=== PATIENT | female | born 1985 | race Caucasian/White ===

== ENCOUNTER 2018-06-21 01:56 | Inpatient (IN) | payer MEDICAID ==
[2018-06-21] MEDS ORDERED: Nalbuphine 10 MG/1 ML Vial IVPUSH PRN (03:04)
[2018-06-21] MEDS ORDERED: Misoprostol 200 MCG Tab PO PRN (03:04)
[2018-06-21] MEDS ORDERED: Carboprost Tromethamine 250 MCG/1 ML Amp IM PRN (03:04)
[2018-06-21] MEDS ORDERED: Butorphanol 1 MG/ML SDV IVPUSH PRN (03:04)
[2018-06-21] MEDS ORDERED: Water For Irrigation,Sterile 1,000 ML Container IRR PRN (03:04)
[2018-06-21] MEDS ORDERED: Ampicillin 2 GM in Sodium Chloride 0.9% 100 ML IV ONE (03:04)
[2018-06-21] MEDS ORDERED: Methylergonovine 0.2 MG/1 ML Amp IM PRN (03:04)
[2018-06-21] MEDS ORDERED: Tranexamic Acid 1,000 MG in Sodium Chloride 0.9% 100 ML IV PRN (03:04)
[2018-06-21] MEDS ORDERED: Lidocaine 1% 50 ML MDV INJECT PRN (03:04)
[2018-06-21] MEDS ORDERED: Sodium Chloride 0.9% 2.5 ML Syringe FLUSH PRN (03:04)
[2018-06-21] MEDS ORDERED: Sodium Chloride 0.9% 10 ML Syringe FLUSH PRN (03:04)
[2018-06-21] MEDS ORDERED: Oxytocin/0.9 % Sodium Chloride 30 UNIT/500 ML BAG IV SCH (03:15)
[2018-06-21] MEDS: Lactated Ringers 1,000 ML IV SCH ×3 (03:21→06:17)
[2018-06-21] MEDS ORDERED: fentaNYL 100 MCG/2 ML SDV ONE (04:48)
[2018-06-21] MEDS ORDERED: Ropivacaine HCl/PF 100 ML ONE (04:48)
[2018-06-21] MEDS ORDERED: Lidocaine HCl/EPINEPHrine 5 ML IJ ONE (04:49)
--- NOTE | 2018-06-21 05:35 | PCM.PREANE ---
Preanesthetic Assessment - Anesthesia/Transfusion/Family Hx Anesthesia History: Prior Anesthesia Without Reaction (3 epidurals (no GA) - last epidural took many attempts (done in [place])) Family History of Anesthesia Reaction: No Transfusion History: No Prior Transfusion(s) - Review of Systems General: No Symptoms Pulmonary: No Symptoms Cardiovascular: No Symptoms Gastrointestinal: No Symptoms Neurological: No Symptoms Other: Reports: None - Physical Assessment NPO Status Date: 06/21/18 NPO Status Time: 05:00 (sips/chips) Height: 5 ft 2 in Weight: 176 lb ASA Class: 1 Mental Status: Alert & Oriented x3 Airway Class: Mallampati = 2 Dentition: Reports: Normal Dentition Thyro-Mental Finger Breadths: 3 Mouth Opening Finger Breadths: 3 ROM/Head Extension: Full Lungs: Clear to Auscultation, Normal Respiratory Effort Cardiovascular: Regular Rate, Regular Rhythm - Lab Values: Laboratory Last Values WBC 11.51 K/uL (4.0-11.0) H 06/21/18 03:15 RBC 4.55 M/uL (4.30-5.90) 06/21/18 03:15 Hgb 10.3 g/dL (12.0-16.0) L 06/21/18 03:15 Hct 33.5 % (36.0-46.0) L 06/21/18 03:15 MCV 73.6 fL (80.0-98.0) L 06/21/18 03:15 MCH 22.6 pg (27.0-32.0) L 06/21/18 03:15 MCHC 30.7 g/dL (31.0-37.0) L 06/21/18 03:15 RDW Std Deviation 46.1 fl (28.0-62.0) 06/21/18 03:15 RDW Coeff of Kiera 17 % (11.0-15.0) H 06/21/18 03:15 Plt Count 171 K/uL (150-400) 06/21/18 03:15 Nucleated RBC % 0.9 /100WBC 06/21/18 03:15 Nucleated RBCs # 0 K/uL 06/21/18 03:15 Blood Type O POSITIVE 06/21/18 03:15 Antibody Screen NEGATIVE 06/21/18 03:15 - Blood Blood Available: No Product(s) Available: None - Anesthesia Plan Free Text/Narrative:: Labor Epidural - Acknowledgements Anesthesia Type Planned: Epidural Pt an Appropriate Candidate for the Planned Anesthesia: Yes Alternatives and Risks of Anesthesia Discussed w Pt/Guardian: Yes Pt/Guardian Understands and Agrees with Anesthesia Plan: Yes PreAnesthesia Questionnaire - Past Health History Medical/Surgical History: Denies Medical/Surgical History 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: - Infectious Disease History Infectious Disease History: Reports: Chicken Pox - SUBSTANCE USE Smoking Status *Q: Never Smoker Second Hand Smoke Exposure: No Recreational Drug Use History: No - CURRENT (IN HOUSE) MEDS Current Meds: Current Medications Butorphanol Tartrate (Stadol) 1 mg IVPUSH Q1H PRN PRN Reason: Pain Carboprost Tromethamine (Hemabate Ds) 250 mcg IM ASDIRECTED PRN PRN Reason: Post Hemorrhage Tranexamic Acid 1,000 mg/ (Sodium Chloride) 110 mls @ 660 mls/hr IV ONETIME PRN PRN Reason: Bleeding Lactated Ringer's (Ringers, Lactated) 1,000 mls @ 150 mls/hr IV ASDIRECTED CHERRY Last Admin: 06/21/18 04:50 Dose: 999 mls/hr Oxytocin/Sodium Chloride (Oxytocin 30 Unit/500 Ml-Ns) 30 unit in 500 mls @ 500 mls/hr IV TITRATE [facility] Lidocaine HCl (Xylocaine 1%) 50 ml INJECT ONETIME PRN PRN Reason: Laceration repair Methylergonovine Maleate (Methergine) 0.2 mg IM ASDIRECTED PRN PRN Reason: Post Hemorrhage Misoprostol (Cytotec) 200 mcg PO ONETIME PRN PRN Reason: Post Hemorrhage Nalbuphine HCl (Nubain) 10 mg IVPUSH Q1H PRN PRN Reason: Pain (severe 7-10) Sodium Chloride (Saline Flush) 10 ml FLUSH ASDIRECTED PRN PRN Reason: Keep Vein Open Sodium Chloride (Saline Flush) 2.5 ml FLUSH ASDIRECTED PRN PRN Reason: Keep Vein Open Sterile Water (Sterile Water For Irrigation) 1,000 ml IRR ASDIRECTED PRN PRN Reason: delivery Discontinued Medications Fentanyl (Sublimaze) Confirm Administered Dose 100 mcg .ROUTE .STK-MED ONE Stop: 06/21/18 04:49 Ampicillin Sodium 2 gm/ Sodium (Chloride) 100 mls @ 200 mls/hr IV ONETIME ONE Stop: 06/21/18 03:33 Last Admin: 06/21/18 03:24 Dose: 200 mls/hr Ropivacaine (Naropin 0.2%) Confirm Administered Dose 100 mls @ as directed .ROUTE .STK-MED ONE Stop: 06/21/18 04:49 Lidocaine/Epinephrine (Lidocaine 1.5%-Epi 1:200,000) Confirm Administered Dose 5 ml IJ .STK-MED ONE Stop: 06/21/18 04:50
[2018-06-21] MEDS ORDERED: Ampicillin 1 GM in Sodium Chloride 0.9% 50 ML IV SCH (07:15)
[2018-06-21] MEDS ORDERED: Acetaminophen 500 MG Tab PO PRN ×2 (11:36)
[2018-06-21] MEDS ORDERED: Ibuprofen 400 MG Tab PO PRN (11:36)
[2018-06-21] MEDS ORDERED: oxyCODONE 5 MG Tab PO PRN (11:36)
[2018-06-21] MEDS ORDERED: Benzocaine/Menthol 20%-0.5% Spray 78 GM Cannister TOP PRN (11:36)
[2018-06-21] MEDS ORDERED: Docusate Sodium 100 MG Cap PO PRN (11:36)
[2018-06-21] MEDS ORDERED: Witch Hazel Medicated Pads 40/Jar TOP PRN (11:36)
[2018-06-21] MEDS ORDERED: Bisacodyl 10 MG Supp RECTAL PRN (11:36)
[2018-06-21] MEDS ORDERED: Lanolin 100% Cream 7 GM Tube TOP PRN (11:36)
--- NOTE | 2018-06-21 11:44 | PCM.OPNOTE ---
- General Post-Op/Procedure Note Date of Surgery/Procedure: 06/21/18 Operative Procedure(s): /IP Findings: Viable female AGPGARs 8, 9 weight pending. Spontaneous delivery intact placenta with 3V cord. Nuchal cord x 2-reduced manually Pre Op Diagnosis: 38/2 week IUP. Labor. GBBS+ Post-Op Diagnosis: Same Anesthesia Technique: Epidural Primary Surgeon: Samina Brandt EBL in mLs: 300 Complications: none known Condition: Good Free Text/Narrative:: Dictation [id number]
--- NOTE | 2018-06-21 12:28 | OR ---
SURGEON: Samina Brandt M.D. DATE OF PROCEDURE: 06/21/2018 PREOPERATIVE DIAGNOSES: 1. 38 and 4 weeks' intrauterine . 2. Active labor. 3. Group B beta strep positive. POSTOPERATIVE DIAGNOSES: 1. 38 and 4 weeks' intrauterine . 2. Active labor. 3. Group B beta strep positive. PROCEDURE: Spontaneous vaginal delivery, intact perineum. ANESTHESIA: Epidural. ESTIMATED BLOOD LOSS: 300 mL. COMPLICATIONS: None. FINDINGS: Viable female, scores 8 at 1 minute and 9 at 5 minutes. Weight is pending. Spontaneous delivery, intact placenta, 3-vessel cord. Nuchal cord x2 noted, reduced manually. DISPOSITION: to nursery, mom in LDRP, stable. PROCEDURE IN DETAIL: Balta is a 33-year-old G4, P3, at 38 and 2 weeks' gestational age who presented on the morning of the 06/21/2018 with regular contractions. She was found to be 5 cm dilated. Therefore, she was admitted, routine labs were drawn, IV hydration was initiated. She is group B beta strep positive. Therefore, ampicillin prophylaxis was initiated. The patient became increasingly uncomfortable, underwent regional anesthesia from epidural, became more comfortable. Category 1 heart tones. Shortly after 8:00 a.m., patient was found to be 6 cm, 70% effaced, -2 station. She had received 2 doses of ampicillin. Therefore, amniotomy was performed. Clear fluid was returned. The patient continued to progress. Shortly before 11:00 a.m., I was called, the patient was complete, 100% effaced, and +2 station. Upon arrival for delivery, the patient was placed in modified dorsal lithotomy position, was prepped and draped in the usual aseptic manner. Continued with pushing efforts; however, at this time, the contractions had now spaced out to be approximately 5 to 6 minutes apart, and the patient was making no progress with pushing. Therefore, initiated low-dose Pitocin at 4 milliunits per minute. This did help significantly. With the patient's pushing efforts, she began having contractions every 2 to 3 minutes, was able to deliver to a +4 station and then followed by delivery of infant's head, followed by anterior shoulder, posterior shoulder, remaining body without difficulty. The 's oropharynx and nares bulb suctioned. Nuchal cord x2 was noted, this reduced manually. was handed off to her mother, attending nursing staff side. Cord was clamped x2 and cut. Cord arterial, cord venous, cord blood sampling were obtained. Light pressure was applied while the placenta was delivered spontaneously intact. Vigorous fundal uterine massage was then applied while 30 units of Pitocin was delivered in 500 mL of IV fluid. Upon inspection of cervix, vaginal sidewalls, and perineum, these were found to be intact. Uterus remained firm. Hemostasis evident. Sponge count is correct. The patient remained in LDRP, to nursery. ISMAEL / SHELL /[id number]
[2018-06-21] MEDS: Ibuprofen 800 MG Tab PO PRN ×2 (13:30→16:44)
[2018-06-22] MEDS: Ibuprofen 800 MG Tab PO PRN ×2 (02:29→08:32)
--- NOTE | 2018-06-22 07:34 | PCM.PNPP ---
- General Info Date of Service: 06/22/18 Functional Status: Reports: Pain Controlled, Tolerating Diet, Ambulating, Urinating - Review of Systems General: Denies: Fever, Weakness, Chills HEENT: Denies: Headaches Pulmonary: Denies: Shortness of Breath, Pleuritic Chest Pain Cardiovascular: Denies: Chest Pain, Palpitations, Dyspnea on Exertion Gastrointestinal: Denies: Abdominal Pain Genitourinary: Denies: Dysuria, Incontinence, Hematuria Psychiatric: Denies: Confusion, Depression, Mood Lability, Anxiety - Patient Data Vital Signs - Most Recent: Last Vital Signs Temp 35.9 C 06/22/18 05:00 Pulse 67 06/22/18 05:00 Resp 18 06/22/18 05:00 BP 131/82 06/22/18 05:00 Pulse Ox 98 06/22/18 05:00 Weight - Most Recent: 176 lb Lab Results - Last 24 Hours: Laboratory Results - last 24 hr 06/21/18 06/22/18 Range/Units 11:24 05:56 Hgb 8.9 L (12.0-16.0) g/dL Hct 29.5 L (36.0-46.0) % Cord ABG pH 7.197 (7.18-7.38) Cord ABG Base Excess -9 (-10--2) Cord VBG pH 7.272 (7.25-7.45) Cord VBG Base Excess -7 (-10--2) Med Orders - Current: Current Medications Acetaminophen (Tylenol Extra Strength) 500 mg PO Q4H PRN PRN Reason: Pain Acetaminophen (Tylenol Extra Strength) 1,000 mg PO Q4H PRN PRN Reason: Pain Last Admin: 06/21/18 20:23 Dose: 1,000 mg Benzocaine/Menthol (Dermoplast Pain Relief 20%-0.5% [place]) 78 gm TOP ASDIRECTED PRN PRN Reason: Perineal Comfort Measure Last Admin: 06/21/18 19:34 Dose: 1 box Bisacodyl (Dulcolax) 10 mg RECTAL ONETIME PRN PRN Reason: Constipation Carboprost Tromethamine (Hemabate Ds) 250 mcg IM ASDIRECTED PRN PRN Reason: Post Hemorrhage Docusate Sodium (Colace) 100 mg PO BID PRN PRN Reason: Constipation Emollient Ointment (Lansinoh Hpa) 0 gm TOP ASDIRECTED PRN PRN Reason: Sore Nipples Last Admin: 06/21/18 19:35 Dose: 1 tube Tranexamic Acid 1,000 mg/ (Sodium Chloride) 110 mls @ 660 mls/hr IV ONETIME PRN PRN Reason: Bleeding Lactated Ringer's (Ringers, Lactated) 1,000 mls @ 150 mls/hr IV ASDIRECTED CHERRY Last Admin: 06/21/18 06:17 Dose: 125 mls/hr Oxytocin/Sodium Chloride (Oxytocin 30 Unit/500 Ml-Ns) 30 unit in 500 mls @ 500 mls/hr IV TITRATE [facility] Ibuprofen (Motrin) 400 mg PO Q4H PRN PRN Reason: Pain Ibuprofen (Motrin) 800 mg PO Q6H PRN PRN Reason: Pain Last Admin: 06/22/18 02:29 Dose: 800 mg Lidocaine HCl (Xylocaine 1%) 50 ml INJECT ONETIME PRN PRN Reason: Laceration repair Methylergonovine Maleate (Methergine) 0.2 mg IM ASDIRECTED PRN PRN Reason: Post Hemorrhage Oxycodone HCl (Oxycodone) 5 mg PO Q2H PRN PRN Reason: Pain Last Admin: 06/21/18 18:40 Dose: 5 mg Sodium Chloride (Saline Flush) 10 ml FLUSH ASDIRECTED PRN PRN Reason: Keep Vein Open Sodium Chloride (Saline Flush) 2.5 ml FLUSH ASDIRECTED PRN PRN Reason: Keep Vein Open Sterile Water (Sterile Water For Irrigation) 1,000 ml IRR ASDIRECTED PRN PRN Reason: delivery Witch Dede (Tucks) 1 pad TOP ASDIRECTED PRN PRN Reason: comfort care Last Admin: 06/21/18 19:35 Dose: 1 box Discontinued Medications Butorphanol Tartrate (Stadol) 1 mg IVPUSH Q1H PRN PRN Reason: Pain Fentanyl (Sublimaze) Confirm Administered Dose 100 mcg .ROUTE .STK-MED ONE Stop: 06/21/18 04:49 Ampicillin Sodium 2 gm/ Sodium (Chloride) 100 mls @ 200 mls/hr IV ONETIME ONE Stop: 06/21/18 03:33 Last Admin: 06/21/18 03:24 Dose: 200 mls/hr Ropivacaine (Naropin 0.2%) Confirm Administered Dose 100 mls @ as directed .ROUTE .STK-MED ONE Stop: 06/21/18 04:49 Ampicillin Sodium 1 gm/ Sodium (Chloride) 50 mls @ 100 mls/hr IV Q4H CHERRY Last Admin: 06/21/18 07:52 Dose: 100 mls/hr Lidocaine/Epinephrine (Lidocaine 1.5%-Epi 1:200,000) Confirm Administered Dose 5 ml IJ .STK-MED ONE Stop: 06/21/18 04:50 Misoprostol (Cytotec) 200 mcg PO ONETIME PRN PRN Reason: Post Hemorrhage Nalbuphine HCl (Nubain) 10 mg IVPUSH Q1H PRN PRN Reason: Pain (severe 7-10) - Infant Interaction Support Person: Mother, Significant Other - Recovery Exam Fundal Tone: Firm Fundal Level: 2 Fingerbreadths Below Umbilicus Fundal Placement: Midline Lochia Amount: Scant Lochia Color: Rubra/Red Perineum Description: Intact, Minimal Bruising/Swelling Episiotomy/Laceration: None Bladder Status: Voiding Urinary Elimination: Voided - Exam General: Alert, Oriented Lungs: Clear to Auscultation, Normal Respiratory Effort Cardiovascular: Regular Rate GI/Abdominal Exam: Normal Bowel Sounds Extremities: Non-Tender, Pedal Edema Skin: Warm Psy/Mental Status: Alert, Normal Affect, Normal Mood - Problem List & Annotations (1) Vaginal delivery SNOMED Code(s): 089812730 Code(s): O80 - ENCOUNTER FOR FULL-TERM UNCOMPLICATED DELIVERY Status: Acute Current Visit: Yes - Problem List Review Problem List Initiated/Reviewed/Updated: Yes - Assessment Assessment:: PPD#1 s/p , stable and afebrile - Plan Plan:: Discharge instructions reviewed Nothing in the vagina for 6 weeks. Bleeding and infection precautions given Continue PNV and start daily Iron supplements S/S of depression reviewed and encouraged to call with concerns Follow up in 6 weeks at [facility]
--- NOTE | 2018-06-22 08:11 | PCM48HPAN ---
Post Anesthesia Note - EVALUATION WITHIN 48HRS OF ANESTHETIC Vital Signs in Normal Range: Yes Patient Participated in Evaluation: Yes Respiratory Function Stable: Yes Airway Patent: Yes Cardiovascular Function Stable: Yes Hydration Status Stable: Yes Pain Control Satisfactory: Yes Nausea and Vomiting Control Satisfactory: Yes Mental Status Recovered: Yes Resp Rate: 18 - COMMENTS/OBSERVATIONS Free Text/Narrative:: Patient doing well. No issues.
== END 2018-06-22 15:10 | disposition home or self-care (01) | DRG 807 ==
LOC: MW.OBCHECK 01:56 → MW.OB 02:00 → MW.OBCHECK 03:04 → OBSVTOIN 11:24 → MW.OB 15:16
PROVIDERS: ADMIT Obstetrics & Gynecology; ATTEND Obstetrics & Gynecology
PROC: 6A550ZT Pheresis of Cord Blood Stem Cells, Single (ICD-10-PCS; principal; 2018-06-21)
PROC: 10E0XZZ Delivery of Products of Conception, External Approach (ICD-10-PCS; principal; 2018-06-21)
PROC: 10907ZC Drainage of Amniotic Fluid, Therapeutic from Products of Conception, Via Natural or Artificial Opening (ICD-10-PCS; principal; 2018-06-21)
PROC: 00HU33Z Insertion of Infusion Device into Spinal Canal, Percutaneous Approach (ICD-10-PCS; 2018-06-21)
PROC: 3E0R3BZ Introduction of Anesthetic Agent into Spinal Canal, Percutaneous Approach (ICD-10-PCS; 2018-06-21)
DX: O99.824 Streptococcus B carrier state complicating childbirth (principal); Z37.0 Single live birth; O69.81X0 Labor and delivery complicated by cord around neck, without compression, not applicable or unspecified; Z3A.38 38 weeks gestation of pregnancy
CPT/HCPCS: 36415; 59025; 59409; 82803; 85014; 85018; 85027; 86850; 86900; 86901; A9270-GY; J0290; J7030; J7050; J7120